=== PATIENT | female | born 1960 | race Caucasian/White ===

== ENCOUNTER 2016-08-24 08:22 | Emergency (ER) | payer BC ==
[~2016-08-24] VITALS: Ht 157.5 cm; Wt 65.9 kg
[~2016-08-24 08:22] MED LIST: ANTI25TA PO
[2016-08-24] MEDS ORDERED: PRED20TA PO (08:30)
[2016-08-24] MEDS ORDERED: FAMOTIDINE INJ 20MG/2ML VIAL (S0028) IV ONE (09:15)
[2016-08-24] MEDS ORDERED: methylPREDNISolone INJ 125 MG/2 ML VIAL (J2930) IV ONE (09:15)
[2016-08-24] MEDS ORDERED: diphenhydrAMINE INJ 50MG/ML VIAL (J1200) IV ONE (09:15)
[2016-08-24] MEDS ORDERED: predniSONE 20 MG TAB PO ONE (10:00)
[2016-08-24] MEDS ORDERED: diphenhydrAMINE 50 MG CAP PO ONE (10:00)
[2016-08-24 11:08] VITALS: BP 137/68
== END 2016-08-24 11:09 | disposition home or self-care (01) ==
LOC: M ED 09:17
DX: T78.40XA Allergy, unspecified, initial encounter (principal); R22.0 Localized swelling, mass and lump, head; Z88.5 Allergy status to narcotic agent; Z91.013 Allergy to seafood; Z88.0 Allergy status to penicillin

== ENCOUNTER 2019-09-07 08:53 | Emergency (ER) | payer BC ==
[~2019-09-07] VITALS: Ht 157.5 cm; Wt 73.1 kg
[~2019-09-07 08:53] MED LIST changes: +PRED20TA PO
[2019-09-07] MEDS ORDERED: BENA25CA4 PO (09:03)
[2019-09-07] MEDS ORDERED: PRED20TA PO ×2 (09:10→09:18)
[2019-09-07] MEDS ORDERED: predniSONE 20 MG TAB PO ONE (09:15)
[2019-09-07 10:02] VITALS: BP 143/77
== END 2019-09-07 10:11 | disposition home or self-care (01) ==
LOC: M ED 08:53
DX: T78.40XA Allergy, unspecified, initial encounter (principal)